=== PATIENT | female | born 1970 | race American Indian/Alaskan Native ===

== ENCOUNTER 2021-10-30 09:07 | Emergency (ER) | payer SELFPAY ==
[2021-10-30 09:43] VITALS: BP 156/94
[2021-10-30] MEDS ORDERED: methylPREDNISolone Sod Succinate 125 MG/2 ML INJ IM ONE (09:50)
[2021-10-30] MEDS ORDERED: diphenhydrAMINE 25 MG CAP PO ONE (09:50)
[2021-10-30] MEDS ORDERED: KETOROLAC 30 MG/1 ML INJ IM ONE (09:50)
--- NOTE | 2021-10-30 10:54 | Emergency Department Report ---
ED General Adult HPI - General Chief complaint: Skin Rash Stated complaint: SKIN RASH Source: patient Mode of arrival: Ambulatory Limitations: No Limitations - History of Present Illness Initial comments: Patient is a 51-year-old female with a history of chronic eczema who presents to the ED with acute exacerbation of her chronic eczema characterized by diffuse facial, upper and lower extremity dry scaly itchy rashes with painful ulcerations for the last 3 months, worse in the last 1 week. Patient states that she was initially treated at another hospital and given steroid Dosepak which did not appear to have helped. Patient states that in the last 1 month her symptoms have been persistent and getting worse. Patient also complains of bilateral eye pain with purulent discharge for the last 1 week. Patient denies shortness of breath, fever, chills, nasal and sinus congestion, cough, chest pain, nausea and vomiting, headache, back pain, abdominal pain, dysuria, urinary frequency and urgency. MD Complaint: diffuse dry itchy scaly rashes -: Gradual, month(s) (3) Location: face, neck, upper extremity, lower extremity Radiation: non-radiation Severity scale (0 -10): 8 Quality: burning, aching, sharp, other (itchy) Consistency: constant Improves with: none Worsens with: none Associated Symptoms: denies other symptoms, rash (diffuse itchy dry scaly rashes). denies: confusion, chest pain, cough, diaphoresis, fever/chills, headaches, loss of appetite, malaise, nausea/vomiting, seizure, shortness of breath, syncope, weakness, other Treatments Prior to Arrival: none - Related Data Previous Rx's Medication Instructions Recorded Last Taken Type Acetaminophen/Codeine [Tylenol 1 tab PO Q6H PRN #12 tab 10/30/21 Unknown Rx /Codeine # 3 tab] Doxycycline Monohydrate 100 mg PO Q12H #20 cap 10/30/21 Unknown Rx Gentamicin 0.3% Ophth Soln 1 drops OP Q4H #5 ml 10/30/21 Unknown Rx Triamcinolone Acetonide 1 applic TP BID #1 tube 10/30/21 Unknown Rx [Triamcinolone Acetonide Oint 0.5%] hydrOXYzine PAMOATE [Vistaril] 50 mg PO Q8H PRN #60 cap 10/30/21 Unknown Rx predniSONE [Deltasone] 60 mg PO QDAY #15 tab 10/30/21 Unknown Rx Allergies Allergy/AdvReac Type Severity Reaction Status Date / Time Penicillins AdvReac Hives Verified 10/30/21 09:43 ED Review of Systems ROS: Stated complaint: SKIN RASH Other details as noted in HPI Constitutional: denies: chills, fever Eyes: denies: eye pain, eye discharge, vision change ENT: denies: ear pain, throat pain Respiratory: denies: cough, shortness of breath, wheezing Cardiovascular: denies: chest pain, palpitations Endocrine: no symptoms reported Gastrointestinal: denies: abdominal pain, nausea, vomiting, diarrhea Genitourinary: denies: urgency, dysuria, discharge Musculoskeletal: arthralgia, myalgia. denies: back pain, joint swelling Skin: rash (diffuse itchy erythematous dry itchy scaly rashes), change in color, pruritus. denies: lesions Neurological: denies: headache, weakness, paresthesias Psychiatric: denies: anxiety, depression Hematological/Lymphatic: denies: easy bleeding, easy bruising ED Past Medical Hx - Past Medical History Hx Deep Vein Thrombosis: Yes Additional medical history: Eczema - Medications Home Medications: Home Medications Medication Instructions Recorded Confirmed Last Taken Type Acetaminophen/Codeine [Tylenol 1 tab PO Q6H PRN #12 tab 10/30/21 Unknown Rx /Codeine # 3 tab] Doxycycline Monohydrate 100 mg PO Q12H #20 cap 10/30/21 Unknown Rx Gentamicin 0.3% Ophth Soln 1 drops OP Q4H #5 ml 10/30/21 Unknown Rx Triamcinolone Acetonide 1 applic TP BID #1 tube 10/30/21 Unknown Rx [Triamcinolone Acetonide Oint 0.5%] hydrOXYzine PAMOATE [Vistaril] 50 mg PO Q8H PRN #60 cap 10/30/21 Unknown Rx predniSONE [Deltasone] 60 mg PO QDAY #15 tab 10/30/21 Unknown Rx ED Physical Exam - General Limitations: No Limitations General appearance: alert, in no apparent distress - Head Head exam: Present: atraumatic, normocephalic, normal inspection - Eye Eye exam: Present: normal appearance, PERRL, EOMI, other (Mild erythematous bilateral conjunctiva with purulent discharge) Pupils: Present: normal accommodation - ENT ENT exam: Present: normal exam, normal orophraynx, mucous membranes moist, TM's normal bilaterally, normal external ear exam - Neck Neck exam: Present: normal inspection, full ROM. Absent: tenderness - Respiratory Respiratory exam: Present: normal lung sounds bilaterally. Absent: respiratory distress, wheezes, rales, rhonchi, chest wall tenderness, accessory muscle use, decreased breath sounds, prolonged expiratory - Cardiovascular Cardiovascular Exam: Present: regular rate, normal rhythm, normal heart sounds. Absent: systolic murmur, diastolic murmur, rubs, gallop - GI/Abdominal GI/Abdominal exam: Present: soft, normal bowel sounds. Absent: tenderness, guarding, rebound, hyperactive bowel sounds, hypoactive bowel sounds, organomegaly - Extremities Exam Extremities exam: Present: normal inspection, full ROM, normal capillary refill. Absent: tenderness - Back Exam Back exam: Present: normal inspection, full ROM. Absent: tenderness, CVA tenderness (R), CVA tenderness (L), muscle spasm, paraspinal tenderness, vertebral tenderness - Neurological Exam Neurological exam: Present: alert, oriented X3, CN II-XII intact, normal gait, reflexes normal - Psychiatric Psychiatric exam: Present: normal affect, normal mood - Skin Skin exam: Present: warm, dry, intact, normal color, rash (diffuse dry scaly rashes rashes), erythema, urticaria. Absent: cyanosis, diaphoretic, vesicles, petechiae, abrasion, ecchymosis, other ED Course Vital Signs 10/30/21 09:40 Temperature 98.6 F Pulse Rate 71 Respiratory 20 Rate Blood Pressure 156/94 [Right] O2 Sat by Pulse 99 Oximetry ED Medical Decision Making - Medical Decision Making This is a 51-year-old female with a history of chronic eczema who presents to the ED with acute exacerbation of her chronic eczema characterized by diffuse facial, upper and lower extremity dry scaly itchy rashes with painful ulcerations for the last 3 months, worse in the last 1 week. Patient states that she was initially treated at another hospital and given steroid Dosepak which did not appear to have helped. Patient states that in the last 1 month her symptoms have been persistent and getting worse. Patient also complains of bilateral eye pain with purulent discharge for the last 1 week. In the ED, patient is alert and oriented x3 and is not in any distress. Patient symptomatically stable. Patient was treated in the ED with steroid intramuscular injection, and also treated for itching with Benadryl. Patient was discharged home on medications and advised to follow-up with her primary care physician in 7 to 10 days for reevaluation or return to the ED immediately if symptoms get worse. - Differential Diagnosis Chronic eczema; irritant dermatitis; folliculitis; conjunctivitis Critical care attestation.: If time is entered above; I have spent that time in minutes in the direct care of this critically ill patient, excluding procedure time. ED Disposition Clinical Impression: Chronic eczema, Itching, Acute bacterial conjunctivitis of both eyes, Acute folliculitis Irritant contact dermatitis Qualifiers: Contact dermatitis trigger: unspecified trigger Qualified Code(s): L24.9 - Irritant contact dermatitis, unspecified cause Disposition: 01 HOME / SELF CARE / HOMELESS Is pt being admited?: No Does the pt Need Aspirin: No Condition: Stable Instructions: Contact Dermatitis, [id number], Eczema, Dyshidrotic Eczema, Folliculitis, Bacterial Conjunctivitis, Adult, [id number] Additional Instructions: Take medication and apply the ointment as advised. Follow-up with your primary care physician in 7 to 10 days for reevaluation. Return to the ED immediately if symptoms get worse. Prescriptions: predniSONE [Deltasone] 60 mg PO QDAY #15 tab Doxycycline Monohydrate 100 mg PO Q12H #20 cap Gentamicin 0.3% Ophth Soln 1 drops OP Q4H #5 ml Triamcinolone Acetonide [Triamcinolone Acetonide Oint 0.5%] 1 applic TP BID #1 tube Acetaminophen/Codeine [Tylenol /Codeine # 3 tab] 1 tab PO Q6H PRN #12 tab PRN Reason: Pain , Severe (7-10) hydrOXYzine PAMOATE [Vistaril] 50 mg PO Q8H PRN #60 cap PRN Reason: Itching Referrals: [facility] [Provider Group] - 7-10 days Time of Disposition: 10:58 Print Language: TONGAN
== END 2021-10-30 13:29 | disposition home or self-care (01) ==
LOC: ED 09:07
DX: L24.9 Irritant contact dermatitis, unspecified cause (principal); H10.89 Other conjunctivitis; L73.9 Follicular disorder, unspecified; Z86.718 Personal history of other venous thrombosis and embolism; Z88.0 Allergy status to penicillin
CPT/HCPCS: 96372; 99282; J1885; J2930